=== PATIENT | female | born 1995 ===

== ENCOUNTER 2019-12-25 06:21 | Inpatient (IN) | payer OTHER ==
[~2019-12-25] VITALS: Ht 162.6 cm; Wt 83.5 kg
[2019-12-25] MEDS ORDERED: OBSTETRIX ONE1 EACH PO (09:08)
== END 2019-12-27 16:26 | disposition home or self-care (01) | DRG 807 ==
LOC: LDR 06:21 → OB/GYN 18:55 → LDR 12-26 02:19 → OB/GYN 12-26 08:46
PROVIDERS: ADMIT Obstetrics & Gynecology
PROC: 10E0XZZ Delivery of Products of Conception, External Approach (ICD-10-PCS; principal; 2019-12-25)
PROC: 0HQ9XZZ Repair Perineum Skin, External Approach (ICD-10-PCS; 2019-12-25)
PROC: 3E033VJ Introduction of Other Hormone into Peripheral Vein, Percutaneous Approach (ICD-10-PCS; 2019-12-25)
PROC: 10907ZC Drainage of Amniotic Fluid, Therapeutic from Products of Conception, Via Natural or Artificial Opening (ICD-10-PCS; 2019-12-25)
PROC: 4A1HXCZ Monitoring of Products of Conception, Cardiac Rate, External Approach (ICD-10-PCS; 2019-12-25)
DX: O70.0 First degree perineal laceration during delivery (principal); Z37.0 Single live birth; Z3A.39 39 weeks gestation of pregnancy

== ENCOUNTER 2023-10-31 08:51 | Outpatient (CLI) | payer OTHER ==
[~2023-10-31 08:51] MED LIST: OBSTETRIX ONE1 EACH PO
== END 2023-10-31 08:52 | disposition home or self-care (01) ==
LOC: PRENATAL 08:51
PROVIDERS: ATTEND Obstetrics & Gynecology Maternal & Fetal Medicine
DX: O35.3XX0 Maternal care for (suspected) damage to fetus from viral disease in mother, not applicable or unspecified (principal); O44.00 Complete placenta previa NOS or without hemorrhage, unspecified trimester; Z3A.19 19 weeks gestation of pregnancy